=== PATIENT | male | born 1945 | race Caucasian/White ===

== ENCOUNTER 2016-12-03 04:24 | Emergency (ER) | payer MEDICARE, OTHER ==
[~2016-12-03] VITALS: Ht 175.3 cm; Wt 84.2 kg
[~2016-12-03 04:24] MED LIST: ACET-2321 PO; ALPR0.5T78 PO; ASPI-1115 PO; CHOL100047 PO; CITA-51 PO; DOCU-168 PO; FERR325T40 PO; MULT-669 PO; OXYC-544 PO; PANT40TA27 PO; TRAZ-170 PO; VITA400C19 PO
[2016-12-03 04:28] VITALS: TEMP 97.8; Ht 175.3 cm; Wt 84.2 kg
--- OUTSIDE RECORDS SUMMARY | 2016-12-03 04:28 | XMS REPORT | Continuity of Care Document ---
Author Author [facility] LIVE Organization [facility] LIVE Address Unknown Phone Unavailable Support Name Relationship Address Phone REBECCA MARK MD Caregiver [facility] [address] [place] [address] , [address] [place] [address] JEFF AVELAR DO Caregiver [facility] [address] [place] [address] [address] [place] [address] [phone] JOSE NGUYỄN Next Of Kin [address] [place], [place] [id number] C Insurance Providers Payer Name Policy Number Subscriber Name Relationship [facility] [id number] Santosh Nguyễn 18 Self Medicare Part A Only [id number] Santosh Nguyễn 18 Self Advance Directives Directive Response Recorded Date/Time Advanced Directives Type Living Will DPOA for Healthcare 04/12/14 12:07pm Ordered Resuscitation Status Full Code 04/12/14 12:11pm Chief Complaint and Reason for Visit Chief Complaint Cardiac Complaint Reason for Visit Chest discomfort Problems Medical Problems Problem Onset Date Status CAD (coronary artery disease) Unknown Active Acute GI bleeding Unknown Active Anemia due to acute blood loss Unknown Active GI bleed Unknown Active Worsening angina Unknown Active Anemia associated with acute blood loss Unknown Active Chest pain Unknown Active GI bleed Unknown Active Shortness of breath on exertion 04/09/2014 Active Elevated d-dimer 04/09/2014 Active Chest discomfort Unknown Active Chest discomfort Unknown Active Surgical Problems Problem Onset Date Recorded Date/Time Status Status post angioplasty with stent Unknown 04/02/2014 5:07pm Active Medications Medication Dose Route Sig Days/Qty Instructions Order Date Discontinued Date Status Meloxicam 15 Mg PO DAILY 06/07/10 04/05/14 Discontinued Pantoprazole Sodium 40 Mg PO DAILY 06/07/10 04/05/14 Discontinued Alprazolam 0.25 Mg PO BEDTIME 06/07/10 Active Citalopram Hydrobromide 40 Mg PO TWICE A DAY 06/07/10 Active Clopidogrel Bisulfate 75 Mg PO DAILY 06/07/10 04/17/11 Discontinued Aspirin 325 Mg PO DAILY 06/07/10 04/05/14 Discontinued Methylprednisolone 06/07/10 12/06/10 Discontinued Clopidogrel Bisulfate 75 Mg PO DAILY 08/25/13 04/05/14 Discontinued Trazodone HCl BEDTIME 04/02/14 Active Ubidecarenone 1 Tab-Cap DAILY 04/02/14 Active Aspirin 81 Mg PO TWICE A DAY 0 Qty 04/05/14 04/10/14 Discontinued Pantoprazole Sodium 1 Tab PO TWICE A DAY 0 Days 04/05/14 Active Nitroglycerin 0.4 Mg SL For CHEST PAIN 04/09/14 Active [Vitamin D] 04/09/14 Active Aspirin 81 Mg PO DAILY 0 Qty 04/10/14 Active Isosorbide Mononitrate 1 Tab PO DAILY 30 Qty 04/10/14 Active Social History Social History Problem Response Recorded Date/Time Smoking Status Never smoker 04/12/2014 12:12pm Chewing Tobacco Status No 08/25/2013 1:35pm Hx Substance Use No 04/09/2014 10:39pm Hx Alcohol Use Y OCCASIONAL WINE 04/09/2014 10:39pm Has the pt used tobacco in the last 12 months No 04/12/2014 12:12pm Query Response Start Date Stop Date Smoking Status Never smoker Hospital Discharge Instructions Instructions: Care Instructions: Reason for Hospitalization: CHEST DISCOMFORT I was in the hospital because (patient own words): "SHORTNESS OF BREATHE, DIZZY, FAINTY" Patient Instructions: EARLY AND LIGHT BREAKFAST ON SATURDAY (04/12) MORNING NOTHING BY MOUTH AFTER BREAKFAST ON SATURDAY (04/12) MORNING BE AT THE HOSPITAL REGISTRATION AT 1200 ON SATURDAY(04/12) MORNING Condition at time of discharge: Good a follow up appointment. With Prednisone your blood sugar will go up, and you may need to increase your insulin dose. Patient Instructions: Check your blood sugars in the morning, 2 hours after meals, and before bed and report to Dr. Munoz Notify Physician If: You develop chest pain, difficulty breathing, weakness, fever, or any new concerns Condition at time of discharge: Good Good Care Plan Discharge Patient: Goal: Understand discharge plan Maximum functional status Patient Instructions: see patient instructions rate >100, confusion, or persistent nausea/vomitting. 2.Severe pain, swelling, redness, or warmth in either of your legs. 3.During office hours, call [phone] 4. After hours, please call [facility] at [phone], and have the recovery unit operator page your Surgeon IN THE EVENT OF AN EMERGENCY, seek medical care at the nearest Emergency Room Condition at time of discharge: Good Plan of Care Discharge Date 04/10/14 4:12pm Disposition 02 [place] [facility] Condition at Discharge Improved Instructions/Education Provided DI for Chest Pain Prescriptions See Medications Section Referrals JEFF AVELAR DO Functional Status Query Response Date Recorded Physical Hygiene Self April 09, 2014 10:39pm Physical Hygiene Self April 09, 2014 10:39pm Allergies, Adverse Reactions, Alerts Allergen Type Severity Reaction Status Last Updated hydrocodone bit Adverse Reaction Severe SICK TO STOMACH Active 04/09/14 Sulfa (Sulfonamide Antibiotics) Allergy Unknown SOA,CHEST TIGHTNESS Active 04/09/14 Simvastatin Allergy Unknown MYOPATHY/MYALGIA Active 04/09/14 Colesevelam Adverse Reaction Unknown MYOPATHY Active 04/09/14 Immunizations Name Given Type Hx Influenza Vaccination Y fall 2012 Historical Hx Pneumococcal Vaccination Y 03/2014 Historical Hx Tetanus, Diptheria, Pertussis Y 06/03/10 Historical Hx Influenza Vaccination Y fall 2012 Historical Hx Tetanus, Diptheria, Pertussis Y 06/03/10 Historical Vital Signs Acute Vital Signs Vital Response Date/Time Temperature (Fahrenheit) 97.8 deg F (96.8 - 99.1) Temperature (Calculated Celsius) 36.57476 degrees C (36.0 - 37.3) Temperature Source Temporal Pulse Rate (adult) 53 bpm (60 - 100) Respiratory Rate 14 breaths/min (10 - 20) O2 Sat by Pulse Oximetry 98 % (90 - 100) Oxygen Delivery Method Room Air Blood Pressure 150/70 mm Hg Blood Pressure Source Automatic Cuff Height 5 ft 10 in Weight 167 lb Body Mass Index 24.0 kg/m^2 Results Test Source Date Result Interp. Ref. Range Comments Activated Partial Thromboplast Time April 09, 2014 10:55pm 31.5 SEC N 24-36 Ordering r/o VTE Yes Alanine Aminotransferase (ALT/SGPT) April 09, 2014 10:55pm 27 U/L N 21- 72 Albumin April 09, 2014 10:55pm 3.5 G/DL N 3.5-5.0 Albumin/Globulin Ratio April 09, 2014 10:55pm 1.5 RATIO N 1.1-2.2 Alkaline Phosphatase April 09, 2014 10:55pm 65 U/L N 38-126 Amylase Level April 17, 2011 11:20am 81 U/L N 30-110 Anion Gap April 12, 2014 12:25pm 8 MEQ/L N 5-15 Aspartate Amino Transf (AST/SGOT) April 09, 2014 10:55pm 22 U/L N 17- 59 BUN/Creatinine Ratio April 12, 2014 12:25pm 18 RATIO N 6-26 Basophils # (Auto) April 12, 2014 12:25pm 0.1 T/MM3 N 0-0.2 Basophils (%) (Auto) April 12, 2014 12:25pm 1.6 % N 0-2 Blood Urea Nitrogen April 12, 2014 12:25pm 21.0 MG/DL H 9-20 Calcium Level April 12, 2014 12:25pm 9.0 MG/DL N 8.4-10.2 Calculated Osmolality April 12, 2014 12:25pm 273 MOSM/KG N 261-280 Carbon Dioxide Level April 12, 2014 12:25pm 29 MEQ/L N 22-30 Chemistry Specimen Hemolysis April 12, 2014 12:25pm < 15 0-25 0-25: No Hemolysis.26-70: Slight Hemolysis - can falsely elevate K and Urine Protein. 71-285: Moderate Hemolysis - can falsely elevate K, Troponin I, CA 19-9, PTH, CSF GLucose, and Urine Protein, and can falsely decrease Phenytoin. 286-999: Gross Hemolysis - can falsely elevate K, Troponin I, CA 19-9, PTH, CSF Glucose, and Urine Protine, and can falsely decrease Phenytoin. Recommend specimen recollection. Chloride Level April 12, 2014 12:25pm 104 MEQ/L N 98-107 Conjugated Bilirubin January 23, 2010 3:06pm 0.00 MG/DL N 0.00-0.30 Creatinine April 12, 2014 12:25pm 1.2 MG/DL N 0.8-1.5 D-Dimer April 09, 2014 10:55pm 316 NG/ML H 0-224 <224 NG/ML= PRESUMPTIVE NEGATIVE FOR PE OR DVT>224 NG/ML=ADDITIONAL EVALUATION FOR PE OR DVT RECOMMENDED Eosinophils # (Auto) April 12, 2014 12:25pm 0.1 T/MM3 N 0-0.5 Eosinophils (%) (Auto) April 12, 2014 12:25pm 1.2 % N 0-4 Globulin April 09, 2014 10:55pm 2.4 G/DL N 2.4-3.6 Glomerular Filtration Rate Calc April 12, 2014 12:25pm 60 - Glucose Level April 12, 2014 12:25pm 88 MG/DL N 75-110 Helicobacter pylori Antibodies April 04, 2014 5:00am Negative - Hematocrit April 12, 2014 12:25pm 32.4 % L 41-53 Hemoglobin April 12, 2014 12:25pm 10.5 GM/DL L 13.5-17.5 Icterus Index April 12, 2014 12:25pm < 2 0-7 Immature Granulocyte # (Auto) April 12, 2014 12:25pm 0.00 T/MM3 N 0.00- 0.03 Immature Granulocyte % (Auto) April 12, 2014 12:25pm 0.0 % N 0.0-0.5 Lab Scanned Report November 10, 2010 12:35pm LAB TEST FORM REQUEST [id number] - Lipase April 17, 2011 11:20am 123 U/L N 23-300 Lymphocytes # (Auto) April 12, 2014 12:25pm 1.2 T/MM3 N 1-4.8 Lymphocytes (%) (Auto) April 12, 2014 12:25pm 25.2 % N 23-45 Magnesium Level April 09, 2014 10:55pm 1.9 MG/DL N 1.6-2.3 Mean Corpuscular Hemoglobin April 12, 2014 12:25pm 26.8 UUG N 26-34 Mean Corpuscular Hemoglobin Concent April 12, 2014 12:25pm 32.4 GM/DL N 31-37 Mean Corpuscular Volume April 12, 2014 12:25pm 82.7 UM3 N 80-100 Mean Platelet Volume April 12, 2014 12:25pm 10.1 UM3 N 9.4-12.4 Monocytes # (Auto) April 12, 2014 12:25pm 0.4 T/MM3 N 0-0.8 Monocytes (%) (Auto) April 12, 2014 12:25pm 8.4 % N 0-9.0 VT-Wfj-N-Type Natriuretic Peptide April 09, 2014 10:55pm 66 PG/ML N 0- 175 Rule in cut points: <50 years old=450; 50-75 years old=900; >75 years old=1800; When utilizing ProBNP rule-in cut points, adjustment for impaired renal function is typically not required. Neutrophils # (Auto) April 12, 2014 12:25pm 3.1 T/MM3 N 1.8-7.7 Neutrophils (%) (Auto) April 12, 2014 12:25pm 63.6 % N 33-66 Platelet Count April 12, 2014 12:25pm 234 T/MM3 N 130-400 Platelet Function Assay December 07, 2010 11:17am 16 % - <20% inhibition : recommended pre-surgical level.>20% inhibition: indicates anti-platelet effect. NOTE: Test not reliable with NSAID use or low platelet counts. Not for use with inherited platelet disorders. Potassium Level April 12, 2014 12:25pm 4.2 MEQ/L N 3.6-5 Prothromb Time International Ratio April 09, 2014 10:55pm 0.95 N 0.81- 1.09 THERAPUTIC RANGE=2.00-3.00 FOR ANTI-THROMBOSIS THERAPUTIC RANGE=2.50- 3.50 FOR IMPLANTED VALVE RDW Standard Deviation April 12, 2014 12:25pm 39.8 FL N 36.9-50.2 Red Blood Count April 12, 2014 12:25pm 3.92 M/MM3 L 4.50-5.90 Sodium Level April 12, 2014 12:25pm 141 MEQ/L N 134-144 Thyroid Stimulating Hormone (TSH) April 09, 2014 10:55pm 3.20 MIU/L N 0.47-4.68 Total Bilirubin April 09, 2014 10:55pm 0.30 MG/DL N 0.20-1.30 Total Protein April 09, 2014 10:55pm 5.9 G/DL L 6.3-8.2 Troponin I April 10, 2014 11:14am < 0.012 ng/ml 0-0.12 Turbidity April 12, 2014 12:25pm < 20 0-20 Unconjugated Bilirubin January 23, 2010 3:06pm 0.51 MG/DL N 0.00-1.10 Urine Bilirubin June 07, 2010 6:30pm Negative - Has specimen been collected/obtained? Y Urine Blood June 07, 2010 6:30pm Trace H - Has specimen been collected/obtained? Y Urine Collection Type June 07, 2010 6:30pm Voided - Has specimen been collected/obtained? Y Urine Color June 07, 2010 6:30pm Yellow - Has specimen been collected/obtained? Y Urine Culture Indicated June 07, 2010 6:30pm Cult not set up - Has specimen been collected/obtained? Y Urine Glucose (UA) June 07, 2010 6:30pm Negative - Has specimen been collected/obtained? Y Urine Ketones June 07, 2010 6:30pm Negative - Has specimen been collected/obtained? Y Urine Leukocyte Esterase June 07, 2010 6:30pm Negative - Has specimen been collected/obtained? Y Urine Nitrite June 07, 2010 6:30pm Negative - Has specimen been collected/obtained? Y Urine Protein June 07, 2010 6:30pm Negative - Has specimen been collected/obtained? Y Urine RBC June 07, 2010 6:30pm 3-5 /HPF H - Has specimen been collected/obtained? Y Urine Specific [place] June 07, 2010 6:30pm 1.010 L - Has specimen been collected/obtained? Y Urine Squamous Epithelial Cells December 09, 2008 12:00am Few - [employer] ANALYST Urine Turbidity June 07, 2010 6:30pm Clear - Has specimen been collected/obtained? Y Urine Urobilinogen June 07, 2010 6:30pm Normal EU/DL - Has specimen been collected/obtained? Y Urine WBC June 07, 2010 6:30pm None seen /HPF - Has specimen been collected/obtained? Y Urine Yeast June 07, 2010 6:30pm 1+ H - Has specimen been collected/ obtained? Y Urine pH June 07, 2010 6:30pm 7.0 - Has specimen been collected/ obtained? Y White Blood Count April 12, 2014 12:25pm 4.9 T/MM3 N 4.5-11.0 Name: SANTOSH NGUYỄN Unit #: [id number] : 1945 Sex: M Loc / [facility] [place]: SRG DOS: 04/09/14 Signed Report #: [id number] DIAGNOSTIC IMAGING REPORT TYPE OF EXAM: CTA PULMONARY EMBOLI Dictated By: BONNIE UGARTE MD INDICATION: ITS.REASON: CHEST DISCOMFORT, SHORTNESS OF BREATH, ELEVATED D-DIMER CTA PULMONARY EMBOLI: The lungs are clear. No nodule or mass. No atelectasis , consolidative infiltrate, or effusion. The pulmonary arteries are widely patent and clear. No evidence for pulmonary embolus or thrombus. Normal appearance of the mediastinum and megan. The upper abdomen is normal in appearance. IMPRESSION: Normal CTA of the chest. No evidence for pulmonary embolism or thrombus or any other abnormality. . Procedures Procedure Status Date Provider(s) EGD (esophagogastroduodenoscopy) completed 04/03/14 JEFF AVELAR DO Encounters Encounter Location Date/Time Departed Clinic [facility] 04/12/14 11:54am Discharged Inpatient [facility] 04/10/14 1:37am Discharged Inpatient [facility] 04/02/14 5:09pm
--- OUTSIDE RECORDS SUMMARY | 2016-12-03 04:28 | XMS REPORT | Continuity of Care Document ---
Author Author [facility] LIVE Organization [facility] LIVE Address Unknown Phone Unavailable Support Name Relationship Address Phone REBECCA MARK MD Caregiver [facility] [address] [facility] [address] [place] [address] ZAHIDA MCKINLEY MD Caregiver [address] [place] [address] [place] [phone] JEFF AVELAR DO Caregiver [facility] [address] [facility] [address] [place], [place] [phone] JOSE NGUYỄN Next Of Kin [address] [place] [address] C Insurance Providers Payer Name Policy Number Subscriber Name Relationship [facility] [id number] Santosh Nguyễn Self Medicare Part A Only [id number] Santosh Nguyễn 18 Self Advance Directives Directive Response Recorded Date/Time Advanced Directives Type Living Will DPOA for Healthcare 04/02/14 5:45pm Ordered Resuscitation Status Full Code 04/02/14 5:09pm Resuscitation Documents on File No 04/02/14 5:45pm Chief Complaint and Reason for Visit Chief Complaint GI BLEED W/PROFOUND ANEMIA,ANGINA Reason for Visit CAD (coronary artery disease) Acute GI bleeding Anemia due to acute blood loss GI bleed Worsening angina Anemia associated with acute blood loss Chest pain Status post angioplasty with stent GI bleed Problems Medical Problems Problem Onset Date Status CAD (coronary artery disease) Unknown Active Acute GI bleeding Unknown Active Anemia due to acute blood loss Unknown Active GI bleed Unknown Active Worsening angina Unknown Active Anemia associated with acute blood loss Unknown Active Chest pain Unknown Active GI bleed Unknown Active Surgical Problems Problem Onset Date [...] PO TWICE A DAY 0 Qty 04/05/14 Active Pantoprazole Sodium 1 Tab PO TWICE A DAY 0 Days 04/05/14 Active Social History Social History Problem Response Recorded Date/Time Smoking Status Never smoker 04/02/2014 5:33pm Chewing Tobacco Status No 08/25/2013 1:35pm Hx Substance Use No 04/02/2014 3:28pm Hx Alcohol Use Y OCCASIONAL WINE 04/02/2014 3:28pm Has the pt used tobacco in the last 12 months No 04/02/2014 5:33pm Query Response Start Date Stop Date Smoking Status Never smoker Hospital Discharge Instructions Instructions: Care Instructions: Nutrition: Breastfeed ad getachew, Supplement after nursing Discharge Activity: see instructions Follow Up Appointments: Call for an appointment with Dr. Florentino in 2 weeks at [phone] Patient Instructions: see instructions Notify Physician If: see instructions General Information: ngmzyo=5750 g, 8 lbs. 12 oz. Dismissal iivonr=8444 g, 8 lbs. 11.5 oz. Plan of Care Discharge Date 04/05/14 12:18pm Disposition 01 DISCHARGED HOME, SELF-CARE Instructions/Education Provided Blood Transfusion DI for Gastrointestinal Bleeding Prescriptions See Medications Section Functional Status Query Response Date Recorded Physical Hygiene Self April 05, 2014 9:46am Disabilities Hearing Visual April 05, 2014 9:46am Devices Used Glasses April 05, 2014 9:46am Dressing Self April 05, 2014 9:46am Ambulation Self April 05, 2014 9:46am Diet Self April 05, 2014 9:46am Mental Status Alert Oriented April 05, 2014 9:46am Disabilities Hearing Visual April 05, 2014 9:46am Devices Used Glasses April 05, 2014 9:46am Physical Hygiene Self April 05, 2014 9:46am Dressing Self April 05, 2014 9:46am Ambulation Self April 05, 2014 9:46am Diet Self April 05, 2014 9:46am Allergies, Adverse Reactions, Alerts Allergen Type Severity Reaction Status Last Updated hydrocodone bit Adverse Reaction Severe SICK TO STOMACH Active 04/02/14 Sulfa (Sulfonamide Antibiotics) Allergy Unknown SOA,CHEST TIGHTNESS Active 04/02/14 Simvastatin Allergy Unknown MYOPATHY/MYALGIA Active 04/02/14 Colesevelam Adverse Reaction Unknown MYOPATHY Active 04/02/14 Immunizations Name Given Type Hx Influenza Vaccination Y fall 2012 Historical Hx Pneumococcal Vaccination Y 2007 Historical Hx Tetanus, Diptheria, Pertussis Y 06/03/10 Historical Hx Influenza Vaccination Y fall 2012 Historical Hx Tetanus, Diptheria, Pertussis Y 06/03/10 Historical Vital Signs Acute Vital Signs Vital Response Date/Time Temperature (Fahrenheit) 96.7 deg F (96.8 - 99.1) Temperature (Calculated Celsius) 35.51552 degrees C (36.0 - 37.3) Temperature Source Oral Pulse Rate (adult) 65 bpm (60 - 100) Respiratory Rate 12 breaths/min (10 - 20) O2 Sat by Pulse Oximetry 99 % (90 - 100) Oxygen Delivery Method Room Air Blood Pressure 136/73 mm Hg Blood Pressure Source Automatic Cuff Height (Feet) 5 feet Height (Inches) 9.00 inches Height 5 ft 9 in Weight 159 lb Body Mass Index 23.0 kg/m^2 Results Test Source Date Result Interp. Ref. Range Comments Activated Partial Thromboplast Time April 02, 2014 3:45pm 27.6 SEC N 24 -36 Alanine Aminotransferase (ALT/SGPT) April 05, 2014 4:35am 32 U/L N 21- 72 Albumin April 05, 2014 4:35am 3.0 G/DL L 3.5-5.0 Albumin/Globulin Ratio April 05, 2014 4:35am 1.3 RATIO N 1.1-2.2 Alkaline Phosphatase April 05, 2014 4:35am 63 U/L N 38-126 Amylase Level April 17, 2011 11:20am 81 U/L N 30-110 Anion Gap April 05, 2014 4:35am 7 MEQ/L N 5-15 Aspartate Amino Transf (AST/SGOT) April 05, 2014 4:35am 17 U/L N 17-59 BUN/Creatinine Ratio April 05, 2014 4:35am 12 RATIO N 6-26 Basophils # (Auto) April 05, 2014 4:35am 0.1 T/MM3 N 0-0.2 Basophils (%) (Auto) April 05, 2014 4:35am 1.1 % N 0-2 Blood Urea Nitrogen April 05, 2014 4:35am 14.0 MG/DL DN 9-20 Calcium Level April 05, 2014 4:35am 8.5 MG/DL N 8.4-10.2 Calculated Osmolality April 05, 2014 4:35am 271 MOSM/KG N 261-280 Carbon Dioxide Level April 05, 2014 4:35am 27 MEQ/L N 22-30 Chemistry Specimen Hemolysis April 05, 2014 4:35am < 15 0-25 0-25: No Hemolysis.26-70: Slight [...] Phenytoin. Recommend specimen recollection. Chloride Level April 05, 2014 4:35am 107 MEQ/L N 98-107 Conjugated Bilirubin January 23, 2010 3:06pm 0.00 MG/DL N 0.00-0.30 Creatinine April 05, 2014 4:35am 1.2 MG/DL N 0.8-1.5 Eosinophils # (Auto) April 05, 2014 4:35am 0.1 T/MM3 N 0-0.5 Eosinophils (%) (Auto) April 05, 2014 4:35am 2.3 % N 0-4 Globulin April 05, 2014 4:35am 2.3 G/DL L 2.4-3.6 Glomerular Filtration Rate Calc April 05, 2014 4:35am 60 - Glucose Level April 05, 2014 4:35am 86 MG/DL N 75-110 Helicobacter pylori Antibodies April 04, 2014 5:00am Negative - Hematocrit April 05, 2014 4:35am 31.3 % L 41-53 Hemoglobin April 05, 2014 4:35am 10.2 GM/DL L 13.5-17.5 Icterus Index April 05, 2014 4:35am < 2 0-7 Immature Granulocyte # (Auto) April 05, 2014 4:35am 0.00 T/MM3 N 0.00- 0.03 Immature Granulocyte % (Auto) April 05, 2014 4:35am 0.0 % N 0.0-0.5 Lab Scanned Report November 10, 2010 12:35pm LAB TEST FORM REQUEST [id number] - Lipase April 17, 2011 11:20am 123 U/L N 23-300 Lymphocytes # (Auto) April 05, 2014 4:35am 1.7 T/MM3 N 1-4.8 Lymphocytes (%) (Auto) April 05, 2014 4:35am 30.4 % N 23-45 Magnesium Level April 05, 2014 4:35am 2.0 MG/DL N 1.6-2.3 Mean Corpuscular Hemoglobin April 05, 2014 4:35am 26.9 UUG N 26-34 Mean Corpuscular Hemoglobin Concent April 05, 2014 4:35am 32.6 GM/DL N 31-37 Mean Corpuscular Volume April 05, 2014 4:35am 82.6 UM3 N 80-100 Mean Platelet Volume April 05, 2014 4:35am 11.0 UM3 N 9.4-12.4 Monocytes # (Auto) April 05, 2014 4:35am 0.6 T/MM3 N 0-0.8 Monocytes (%) (Auto) April 05, 2014 4:35am 10.9 % H 0-9.0 FU-Xlb-I-Type Natriuretic Peptide April 02, 2014 3:45pm 267 PG/ML H 0- 175 Rule in cut points: <50 years old=450; 50-75 years old=900; >75 years old=1800; When utilizing ProBNP rule-in cut points, adjustment for impaired renal function is typically not required. Neutrophils # (Auto) April 05, 2014 4:35am 3.1 T/MM3 N 1.8-7.7 Neutrophils (%) (Auto) April 05, 2014 4:35am 55.3 % N 33-66 Platelet Count April 05, 2014 4:35am 202 T/MM3 N 130-400 Platelet Function Assay December 07, 2010 11:17am 16 % - <20% inhibition : recommended pre-surgical level.>20% inhibition: indicates anti-platelet effect. NOTE: Test not reliable with NSAID use or low platelet counts. Not for use with inherited platelet disorders. Potassium Level April 05, 2014 4:35am 3.8 MEQ/L N 3.6-5 Prothromb Time International Ratio April 02, 2014 3:45pm 0.98 N 0.81- 1.09 THERAPUTIC RANGE=2.00-3.00 FOR ANTI-THROMBOSIS THERAPUTIC RANGE=2.50- 3.50 FOR IMPLANTED VALVE RDW Standard Deviation April 05, 2014 4:35am 41.5 FL N 36.9-50.2 Red Blood Count April 05, 2014 4:35am 3.79 M/MM3 L 4.50-5.90 Sodium Level April 05, 2014 4:35am 141 MEQ/L N 134-144 Total Bilirubin April 05, 2014 4:35am 0.70 MG/DL N 0.20-1.30 Total Protein April 05, 2014 4:35am 5.3 G/DL L 6.3-8.2 Troponin I April 02, 2014 3:45pm < 0.012 ng/ml 0-0.12 Turbidity April 05, 2014 4:35am < 20 0-20 Unconjugated Bilirubin January 23, [...] Has specimen been collected/obtained? Y Urine Specific [place] June 07, 2010 6:30pm 1.010 L - Has specimen been collected/obtained? 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 Y White Blood Count April 05, 2014 4:35am 5.6 T/MM3 N 4.5-11.0 Name: SANTOSH NGUYỄN Unit #: [id number] : 1945 Sex: M Loc / Svc: ED DOS: Signed Report #: [id number] DIAGNOSTIC IMAGING REPORT TYPE OF EXAM: CHEST 1 VIEW Dictated By: VINNIE DURON MD INDICATION: ITS.REASON: chest pain CHEST 1 VIEW: Comparison: July 09, 2012 FINDINGS: The lungs are clear. There is no abnormal airspace opacity, pleural effusion or pneumothorax identified. The heart size, pulmonary vasculature and mediastinum are within normal limits. No significant skeletal abnormality is seen. IMPRESSION: No acute cardiopulmonary abnormality. Stable appearance of the chest. . Procedures Procedure Status Date Provider(s) EGD (esophagogastroduodenoscopy) completed 04/03/14 JEFF AVELAR DO Encounters Encounter Location Date/Time Discharged Inpatient [facility] 04/02/14 5:09pm Recent Diagnosis CAD (coronary artery disease) Acute GI bleeding Anemia due to acute blood loss GI bleed Worsening angina Anemia associated with acute blood loss Chest pain GI bleed
--- OUTSIDE RECORDS SUMMARY | 2016-12-03 04:28 | XMS REPORT | Continuity of Care Document ---
Author Author [facility] LIVE Organization [facility] LIVE Address Unknown Phone Unavailable Support Name Relationship Address Phone REBECCA MARK MD Caregiver CARDIOVASCULAR CARE [address] [facility] [address] [place] [address] JEFF AVELAR DO Caregiver [facility] [address] [place] [phone] JIMENEZ BAILEY MD Caregiver [address] [place] [address] [place] [phone] JOSE NGUYỄN Next Of Kin [address] [place], [place] [id number] C Insurance Providers Payer Name Policy Number Subscriber Name Relationship [facility] [id number] Santosh Nguyễn Self Medicare Part A Only [id number] Santosh Nguyễn 18 Self Advance Directives Directive Response Recorded Date/Time Advanced Directives Type None 04/10/14 2:37am Ordered Resuscitation Status Full Code, unverified 04/10/14 1:37am Chief Complaint and Reason for Visit Chief Complaint CHEST DISCOMFORT,DYSPNEA Reason for Visit Shortness of breath on exertion Elevated d-dimer Chest discomfort Chest discomfort Problems Medical Problems Problem Onset [...] History Problem Response Recorded Date/Time Smoking Status Former smoker 04/09/2014 10:39pm Chewing Tobacco Status No 08/25/2013 1:35pm Hx Substance Use No 04/09/2014 10:39pm Hx Alcohol Use Y OCCASIONAL WINE 04/09/2014 10:39pm Has the pt used tobacco in the last 12 months No 04/10/2014 2:38am Query Response Start Date Stop Date Smoking [...] MORNING Condition at time of discharge: Good Patient Instructions: Drink adequate water to maintain good hydration. Get adequate rest at least 7-8 hrs of sleep at night. Limit intake of mild since it causes a rise in your blood sugar. Notify Physician If: Fever over 103 F not responding to treatment with Tylenol or ibuprofen Condition at time of discharge: Good Condition at time of discharge: Good Driving 1.May drive in 4 weeks if you had your LEFT extremity operated on. 2.May drive in 6 weeks if you had your RIGHT extremity operated on. Wound/Incision Care: Tegaderm 1.Clear dressing is to remain in place for 2 weeks. 2.Do not pick at it or scrub it while showering. 3.If the dressing begins to pull up, secure it with 4x4 gauze pad and tape. 4.You may shower; however, do not submerge yourself in water until the incision is completely healed. Mepilex 1.Dressing to remain in place until your follow up appointment. 2.If this dressing starts peeling up slightly, it may be reinforced, if it peels excessively, notify your surgeon's office. 3.You may shower with the dressing in place, but do not submerge in water 4.Do not allow water to seep under the dressing, if it should seep under, remove the dressing and notify your surgeon. Notify Physician If: Call your Surgeon if you have: 1.Chest pain, difficulty breathing, fever>100.5 degrees, chills, heart rate >100, confusion, or persistent nausea/vomitting. 2.Severe pain, swelling, redness, or warmth in either of your legs. 3.During office hours, call [phone] 4. After hours, please call [facility] at [phone], and have the stemming machine operator page your Surgeon IN THE EVENT OF AN EMERGENCY, seek medical care at the nearest Emergency Room Condition at time of discharge: Good Care Plan Discharge Patient: Goal: Understand discharge plan Patient Instructions: see patient instructions see patient instructions Plan of Care Discharge Date 04/10/14 4:12pm Disposition 01 DISCHARGED HOME, SELF-CARE Instructions/Education Provided DI for Chest Pain Prescriptions See Medications Section Functional Status Query Response Date Recorded Physical Hygiene Self April 09, 2014 10:39pm Disabilities None April 10, 2014 1:44am Devices Used Glasses April 10, 2014 1:44am Dressing Self April 09, 2014 10:39pm Ambulation Self April 09, 2014 10:39pm Diet Self April 09, 2014 10:39pm Mental Status Alert Oriented April 10, 2014 1:44am Disabilities None April 10, 2014 1:44am Devices Used Glasses April 10, 2014 1:44am Physical Hygiene Self April 09, 2014 10:39pm Dressing Self April 09, 2014 10:39pm Ambulation Self April 09, 2014 10:39pm Diet Self April 09, 2014 10:39pm Allergies, Adverse [...] Hx Tetanus, Diptheria, Pertussis Y 06/03/10 Historical pneumococcal polysaccharide PPV23 04/05/14 Administered pneumococcal polysaccharide PPV23 04/05/14 Administered Vital Signs Acute Vital Signs Vital Response Date/Time Temperature (Fahrenheit) 97.7 deg F (96.8 - 99.1) Temperature (Calculated Celsius) 36.05459 degrees C (36.0 - 37.3) Pulse Rate (adult) 52 bpm (60 - 100) Respiratory Rate 14 breaths/min (10 - 20) O2 Sat by Pulse Oximetry 99 % (90 - 100) Oxygen Flow Rate 1.00 L/min Blood Pressure 117/58 mm Hg Height 5 ft 10 in Weight 173 lb Body Mass Index 24.0 kg/m^2 Results [...] 81 U/L N 30-110 Anion Gap April 09, 2014 10:55pm 8 MEQ/L N 5-15 Aspartate Amino Transf (AST/SGOT) April 09, 2014 10:55pm 22 U/L N 17- 59 BUN/Creatinine Ratio April 09, 2014 10:55pm 25 RATIO N 6-26 Basophils # (Auto) April 10, 2014 1:15am 0.1 T/MM3 N 0-0.2 COMMENT MAY USE BLOOD IN LAB Basophils (%) (Auto) April 10, 2014 1:15am 1.8 % N 0-2 COMMENT MAY USE BLOOD IN LAB Blood Urea Nitrogen April 09, 2014 10:55pm 27.0 MG/DL H 9-20 Calcium Level April 09, 2014 10:55pm 8.7 MG/DL N 8.4-10.2 Calculated Osmolality April 09, 2014 10:55pm 270 MOSM/KG N 261-280 Carbon Dioxide Level April 09, 2014 10:55pm 27 MEQ/L N 22-30 Chemistry Specimen Hemolysis April 10, 2014 11:14am < 15 0-25 0-25: No Hemolysis.26-70: Slight [...] Phenytoin. Recommend specimen recollection. Chloride Level April 09, 2014 10:55pm 103 MEQ/L N 98-107 Conjugated Bilirubin January 23, 2010 3:06pm 0.00 MG/DL N 0.00-0.30 Creatinine April 09, 2014 10:55pm 1.1 MG/DL N 0.8-1.5 D-Dimer April 09, 2014 10:55pm 316 NG/ML H 0-224 <224 NG/ML= PRESUMPTIVE NEGATIVE FOR PE OR DVT>224 NG/ML=ADDITIONAL EVALUATION FOR PE OR DVT RECOMMENDED Eosinophils # (Auto) April 10, 2014 1:15am 0.2 T/MM3 N 0-0.5 COMMENT MAY USE BLOOD IN LAB Eosinophils (%) (Auto) April 10, 2014 1:15am 3.9 % N 0-4 COMMENT MAY USE BLOOD IN LAB Globulin April 09, 2014 10:55pm 2.4 G/DL N 2.4-3.6 Glomerular Filtration Rate Calc April 09, 2014 10:55pm 67 - Glucose Level April 09, 2014 10:55pm 88 MG/DL N 75-110 Helicobacter pylori Antibodies April 04, 2014 5:00am Negative - Hematocrit April 10, 2014 1:15am 31.6 % L 41-53 COMMENT MAY USE BLOOD IN LAB Hemoglobin April 10, 2014 1:15am 10.1 GM/DL L 13.5-17.5 COMMENT MAY USE BLOOD IN LAB Icterus Index April 09, 2014 10:55pm < 2 0-7 Immature Granulocyte # (Auto) April 10, 2014 1:15am 0.01 T/MM3 N 0.00- 0.03 COMMENT MAY USE BLOOD IN LAB Immature Granulocyte % (Auto) April 10, 2014 1:15am 0.2 % N 0.0-0.5 COMMENT MAY USE BLOOD IN LAB Lab Scanned Report November 10, 2010 12:35pm LAB TEST FORM REQUEST [id number] - Lipase April 17, 2011 11:20am 123 U/L N 23-300 Lymphocytes # (Auto) April 10, 2014 1:15am 1.6 T/MM3 N 1-4.8 COMMENT MAY USE BLOOD IN LAB Lymphocytes (%) (Auto) April 10, 2014 1:15am 34.1 % N 23-45 COMMENT MAY USE BLOOD IN LAB Magnesium Level April 09, 2014 10:55pm 1.9 MG/DL N 1.6-2.3 Mean Corpuscular Hemoglobin April 10, 2014 1:15am 27.0 UUG N 26-34 COMMENT MAY USE BLOOD IN LAB Mean Corpuscular Hemoglobin Concent April 10, 2014 1:15am 32.0 GM/DL N 31-37 COMMENT MAY USE BLOOD IN LAB Mean Corpuscular Volume April 10, 2014 1:15am 84.5 UM3 N 80-100 COMMENT MAY USE BLOOD IN LAB Mean Platelet Volume April 10, 2014 1:15am 11.1 UM3 N 9.4-12.4 COMMENT MAY USE BLOOD IN LAB Monocytes # (Auto) April 10, 2014 1:15am 0.6 T/MM3 N 0-0.8 COMMENT MAY USE BLOOD IN LAB Monocytes (%) (Auto) April 10, 2014 1:15am 12.7 % H 0-9.0 COMMENT MAY USE BLOOD IN LAB CP-Jay-W-Type Natriuretic Peptide April 09, 2014 10:55pm 66 PG/ML N 0- 175 Rule in cut points: <50 years old=450; 50-75 years old=900; >75 years old=1800; When utilizing ProBNP rule-in cut points, adjustment for impaired renal function is typically not required. Neutrophils # (Auto) April 10, 2014 1:15am 2.2 T/MM3 N 1.8-7.7 COMMENT MAY USE BLOOD IN LAB Neutrophils (%) (Auto) April 10, 2014 1:15am 47.3 % N 33-66 COMMENT MAY USE BLOOD IN LAB Platelet Count April 10, 2014 1:15am 212 T/MM3 N 130-400 COMMENT MAY USE BLOOD IN LAB Platelet Function Assay December 07, 2010 11:17am 16 % - <20% inhibition : recommended pre-surgical level.>20% inhibition: indicates anti-platelet effect. NOTE: Test not reliable with NSAID use or low platelet counts. Not for use with inherited platelet disorders. Potassium Level April 09, 2014 10:55pm 3.9 MEQ/L N 3.6-5 Prothromb Time International Ratio April 09, 2014 10:55pm 0.95 N 0.81- 1.09 THERAPUTIC RANGE=2.00-3.00 FOR ANTI-THROMBOSIS THERAPUTIC RANGE=2.50- 3.50 FOR IMPLANTED VALVE RDW Standard Deviation April 10, 2014 1:15am 41.9 FL N 36.9-50.2 COMMENT MAY USE BLOOD IN LAB Red Blood Count April 10, 2014 1:15am 3.74 M/MM3 L 4.50-5.90 COMMENT MAY USE BLOOD IN LAB Sodium Level April 09, 2014 10:55pm 138 MEQ/L N 134-144 Thyroid Stimulating Hormone (TSH) April 09, 2014 10:55pm 3.20 MIU/L N 0.47-4.68 Total Bilirubin April 09, 2014 10:55pm 0.30 MG/DL N 0.20-1.30 Total Protein April 09, 2014 10:55pm 5.9 G/DL L 6.3-8.2 Troponin I April 10, 2014 11:14am < 0.012 ng/ml 0-0.12 Turbidity April 09, 2014 10:55pm < 20 0-20 Unconjugated Bilirubin January 23, [...] Has specimen been collected/obtained? Y Urine Specific [place] June 07, 2010 6:30pm 1.010 L - Has specimen been collected/obtained? 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 Y White Blood Count April 10, 2014 1:15am 4.6 T/MM3 N 4.5-11.0 COMMENT MAY USE BLOOD IN LAB Name: SANTOSH NGUYỄN Unit #: [id number] : 1945 Sex: M Loc / Svc: SRG DOS: 04/09/14 Signed Report #: [id number] DIAGNOSTIC IMAGING REPORT TYPE OF EXAM: CTA [...] DO Encounters Encounter Location Date/Time Discharged Inpatient [facility] 04/10/14 1:37am Discharged Inpatient [facility] 04/02/14 5:09pm Recent Diagnosis Shortness of breath on exertion Elevated d-dimer Chest discomfort Chest discomfort
[2016-12-03] MEDS ORDERED: ASPI81TA2 PO (04:45)
[2016-12-03] MEDS ORDERED: SERT50TA PO (04:45)
--- NOTE | 2016-12-03 04:45 | NUR ---
PROVIDER AT BEDSIDE
--- NOTE | 2016-12-03 05:02 | ERPDOC ---
Departure Disposition Decision Date: Dec 03, 2016 Disposition Decision Time: 06:33 Disposition: 01 DISCHARGED HOME, SELF-CARE Impression Impression Impression: Primary Impression: Bradycardia Additional Impressions: Dyspnea Dyspnea type: dyspnea on exertion Qualified Codes: R06.09 - Other forms of dyspnea Fatigue Fatigue type: unspecified Qualified Codes: R53.83 - Other fatigue Severity: Moderate Condition: Stable Seen By: Physician only Referrals: JEFF AVELAR DO (Family) 1 Week REBECCA MARK MD 1 Day Patient Instructions: Dyspnea (ED) Problems/Meds/Labs Reviewed?: Yes Medications reviewed and manag: Yes Additional Instructions: We did not find a cause of your shortness of breath today, but it may be related to your slow heart rate. Follow up with Dr. Mark tomorrow for further testing and treatment. Follow up care ordered?: Yes Mental Status: Alert, Oriented HPI - Dyspnea General Chief Complaint: Dyspnea/Respdistress Stated Complaint: SHORTNESS OF BREATH Time Seen by Provider: 04:43 Source: patient, family Exam Limitations: no limitations HPI - Dyspnea Initial Comments 71yo man presents to the ER this AM for dyspnea on exertion. Pt has had similar sx for several weeks, but the dyspnea has gotten precipitously worse overnight. When pt walked his dogs at 0400 this AM, he could hardly handle the walk. He has a cardiac hx, including 4 stents placed over 3 catheterizations. No h/o CHF or VA. Occurred At: home Onset/Timing: Gradual, Getting worse Duration: other Severity: moderate Prior Episodes/Possible Cause: occasional episodes Modifying Factors: IMPROVES WITH: oxygen, rest, WORSE WITH: activity Associated Symptoms: shortness of breath, DENIES: chest pain, cough, diaphoresis, fever/chills, headaches, loss of appetite, malaise, nausea/vomiting , rash, seizure, syncope, weakness Aspirin Treatment Today: 81 mg x 1, provided at home Hx of Similar Symptoms: Yes Allergies: Coded Allergies: Sulfa (Sulfonamide Antibiotics) (Verified Allergy, Unknown, SOA,CHEST TIGHTNESS, 12/03/16) simvastatin (Verified Allergy, Unknown, MYOPATHY/MYALGIA, 12/03/16) hydrocodone bit (Verified Adverse Reaction, Severe, SICK TO STOMACH, ) colesevelam (Verified Adverse Reaction, Unknown, MYOPATHY, 12/03/16) Past History Past Medical History Cardiac: CAD GI: GERD, constipation, ulcers Musculoskeletal: osteoarthritis Psychological: anxiety, depression Surgical History General: back, hernia, tonsils Cardiac: cardiac stent Joint: foot, knee, shoulder Family History Family PMH: FOUND: diabetes, hypertension Vaccines Hx Influenza Vaccination: Yes (fall 2012) Hx Pneumococcal Vaccination: Yes (03/2014) Hx Tetanus, Diptheria, Pertuss: Yes (06/03/10) Social History Sexuality: female partner Review of Systems Constitutional Constitutional: fatigue, weakness Cardiovascular Cardiac: dyspnea on exertion Pulmonary Respiratory: dyspnea All other Systems All Other Systems: Reviewed and Negative Physical Exam General General Nourishment: well nourished, well developed, appears stated age, no acute distress, adult, thin General Body Habitus: well groomed Vitals and Pain First Documented Vital Signs Date Time Temp Pulse Resp B/P Pulse Ox O2 Delivery O2 Flow Rate FiO2 12/03/16 04:28 97.8 48 20 147/79 97 Room Air Weight: Kilograms: 84.200 Height (feet): 5 Height (inches): 9.00 Triage Pain Scale: RN VS reviewed by Provider: Yes Eyes (brief) Eyes Brief: found: EOMI, PERRL, not found: scleral icterus ENMT (brief) ENMT Brief: FOUND: TM clear, TM good light reflex, ear canals clear, mucosa moist, normal tonsils Neck (brief) Neck: FOUND: trachea midline, NOT FOUND: JVD, adenopathy, thyromegaly Respiratory (brief) Respiratory: FOUND: clear all dale, equal bilaterally, symmetrical, NOT FOUND : rales, wheezes Cardiovascular (brief) Cardiac: FOUND: regular rhythm, NOT FOUND: click, gallop, murmur, pedal edema, peripheral edema, regular rate (Bradycardia), rub Capillary Refill: <2 sec Pulses: all distal extremities, equal, strong Abdomen (brief) Abdominal Brief: FOUND: bowel normo active x4, soft, NOT FOUND: distended, hepatosplenomegaly, pulsatile mass, tender Lymphatic (brief) Lymphatic Brief: NOT FOUND: adenopathy, lymphedema Musculoskeletal (brief) Musculoskeletal Brief: NOT FOUND: deformity, loss of motion, spasm, tenderness Integumentary (brief) Integumentary Brief: FOUND: pink, warm Neurologic (brief) Neurological Brief: FOUND: CN w/o gross def to obs, DTR 2/4 all extremities, gait w/o gross def to obs, motor-no gross deficits, sensory-no gross deficits, NOT FOUND: Babinski Psychiatric (brief) Psychiatric Brief: FOUND: alert, normal affect, oriented Differential Diagnoses Considering: Acute Bronchitis, Acute VA, Acute Respiratory Failure, CHF, Pneumonia, Pneumothorax, Pulmonary Edema, Pulmonary Embolus, RSV, Viral Syndrome Progress Results/Orders Orders Procedure Category Date Status Time Cmp - Comprehensive LAB 12/03/16 Complete Metabolic 04:53 Probnp LAB 12/03/16 Complete 04:53 Cbc W/Auto LAB 12/03/16 Complete Diff-Reflex Manual 04:53 D-Dimer LAB 12/03/16 Complete 04:53 Troponin I W LAB 12/03/16 Complete Hemolysis Index 04:53 EKG EKG 12/03/16 Taken 04:53 Chest, Pa & Lateral RAD 12/03/16 Resulted 04:53 Iv Lock (Ed Only) EDM 12/03/16 Transmitted 04:53 Oxygen Administration EDM 12/03/16 Transmitted 04:53 Magnesium LAB 12/03/16 Complete 04:53 Ua, Dip Wreflex LAB 12/03/16 Complete Microsc & Integration Director 04:53 Tsh - Thyroid Stim LAB 12/03/16 Complete Hormone 06:47 Lab Results Laboratory Tests Test 12/03/16 04:53 12/03/16 04:58 12/03/16 05:24 White Blood Count 5.8T/MM3 Red Blood Count 4.58M/MM3 Hemoglobin 12.7GM/DL Hematocrit 37.4% Mean Corpuscular Volume 81.7UM3 Mean Corpuscular Hemoglobin 27.7UUG Mean Corpuscular Hemoglobin Concent 34.0GM/DL RDW Standard Deviation 38.2FL Platelet Count 183T/MM3 Mean Platelet Volume 10.5UM3 Immature Granulocyte % (Auto) 0.2% Neutrophils (%) (Auto) 54.7% Lymphocytes (%) (Auto) 32.3% Monocytes (%) (Auto) 9.3% Eosinophils (%) (Auto) 2.1% Basophils (%) (Auto) 1.4% Absolute Immature Granulocyte (auto 0.01T/MM3 Absolute Neutrophils (auto) 3.2T/MM3 Absolute Lymphocytes (auto) 1.9T/MM3 Absolute Monocytes (auto) 0.5T/MM3 Absolute Eosinophils (auto) 0.1T/MM3 Absolute Basophils (auto) 0.1T/MM3 D-Dimer < 150NG/ML Turbidity < 20 Sodium Level 143MEQ/L Potassium Level 3.4MEQ/L Chloride Level 107MEQ/L Carbon Dioxide Level 25MEQ/L Anion Gap 11MEQ/L Blood Urea Nitrogen 29.0MG/DL Creatinine 1.2MG/DL Glomerular Filtration Rate Calc 60 BUN/Creatinine Ratio 24RATIO Glucose Level 93MG/DL Calculated Osmolality 281MOSM/KG Calcium Level 9.6MG/DL Magnesium Level 2.0MG/DL Total Bilirubin 0.60MG/DL Icterus Index < 2 Aspartate Amino Transf (AST/SGOT) 29U/L Alanine Aminotransferase (ALT/SGPT) 33U/L Alkaline Phosphatase 63U/L Troponin I < 0.012ng/ml IA-Ntq-A-Type Natriuretic Peptide 70PG/ML Total Protein 6.2G/DL Albumin 3.6G/DL Globulin 2.6G/DL Albumin/Globulin Ratio 1.4RATIO Chemistry Specimen Hemolysis < 15 Thyroid Stimulating Hormone (TSH) 2.48MIU/L Urine Collection Type Cleancatch-midstream Urine Color Yellow Urine Turbidity Clear Urine pH 5.5 Urine Specific [place] 1.010 Urine Protein Negative Urine Glucose (UA) Negative Urine Ketones Negative Urine Blood Trace-intact Urine Nitrite Negative Urine Bilirubin Negative Urine Urobilinogen 0.2EU/DL Urine Leukocyte Esterase Negative Urinalysis Comment Microscopic not ind. Progress Progress Discussed lack of definitive dx, prognosis, and plan of care with pt; pt voiced understanding. F/u with Dr. Mark in clinic tomorrow. EKG EKG : Rate: <60 Rhythm: sinus Warren: normal QRS: normal Intervals: normal ST/T: normal Interpreted by: signing physician Consult/PCP Consult/PCP : Physician Contacted: Dr. Mark Time Called: 05:55 Time of first response: 05:58 Type of discussion: Phone Consult/PCP Discussion Details Prema: Unsure of dispo: call Dr. Mark directly. 0605: Requested Dr. Mark. 0608: Call went to voicemail. 0621: Repaged Dr. Mark. 0623: Draw TSH; F/u in clinic tomorrow for eval/holter. Xray Xray : Xray: CXR PA/Lat Interpretation: Normal, Interpreted by BOBBY Austin DO Dec 03, 2016 05:02
[2016-12-03 05:06] LABS: BASOPHILS # (AUTO) 0.1 T/MM3 (0-0.2); BASOPHILS % (AUTO) 1.4 % (0-2); EOSINOPHILS # (AUTO) 0.1 T/MM3 (0-0.5); EOSINOPHILS % (AUTO) 2.1 % (0-4); HCT - HEMATOCRIT 37.4 % (41-53); HGB - HEMOGLOBIN 12.7 GM/DL (13.5-17.5); IMMATURE GRANULOCYTE # (AUTO) 0.01 T/MM3 (0.00-0.03); IMMATURE GRANULOCYTE % (AUTO) 0.2 % (0.0-0.5); LYMPHOCYTES # (AUTO) 1.9 T/MM3 (1-4.8); LYMPHOCYTES % (AUTO) 32.3 % (23-45); MEAN CORPUSCULAR HGB 27.7 UUG (26-34); MEAN CORPUSCULAR VOLUME 81.7 UM3 (80-100); MEAN PLATELET VOLUME 10.5 UM3 (9.4-12.4); MONOCYTES # (AUTO) 0.5 T/MM3 (0-0.8); MONOCYTES % (AUTO) 9.3 % (0-9.0); NEUTROPHILS #(AUTO)-ABSOLUTE 3.2 T/MM3 (1.8-7.7); NEUTROPHILS % (AUTO) 54.7 % (33-66); RED BLOOD COUNT 4.58 M/MM3 (4.50-5.90); WBC - WHITE BLOOD COUNT 5.8 T/MM3 (4.5-11.0)
[2016-12-03 05:14] LABS: ALBUMIN 3.6 G/DL (3.5-5.0); ALBUMIN/GLOBULIN RATIO 1.4 RATIO (1.1-2.2); ALKALINE PHOSPHATASE 63 U/L (38-126); ALT (SGPT) 33 U/L (21-72); ANION GAP 11 MEQ/L (5-15); AST (SGOT) 29 U/L (17-59); BUN/CREATININE RATIO 24 RATIO (6-26); CALCIUM 9.6 MG/DL (8.4-10.2); CHLORIDE 107 MEQ/L (98-107); CO2 - CARBON DIOXIDE 25 MEQ/L (22-30); CREATININE 1.2 MG/DL (0.8-1.5); GLOMERULAR FILTRATION RATE 60; GLUCOSE 93 MG/DL (75-110); POTASSIUM 3.4 MEQ/L (3.6-5); SODIUM 143 MEQ/L (134-144); TOTAL PROTEIN 6.2 G/DL (6.3-8.2)
[2016-12-03 05:22] LABS: PROBNP 70 PG/ML (0-175)
[2016-12-03 05:35] LABS: BLOOD, URINE TRACE-INTACT (NEGATIVE); COLOR,URINE YELLOW (YELLOW); LEUKOCYTE ESTERASE ,URINE NEGATIVE (NEGATIVE); NITRITE,URINE NEGATIVE (NEGATIVE); UROBILINOGEN,URINE 0.2 EU/DL (NORMAL)
--- NOTE | 2016-12-03 06:10 | NUR ---
STATUS PT. RESTING COMFORTABLY IN ROOM. MONITOR SINUS BRADYCARDIA.
--- OUTSIDE RECORDS SUMMARY | 2016-12-03 06:18 | XMS REPORT | Continuity of Care Document ---
Author Author Eddie [facility] LIVE Organization [facility] LIVE Address Unknown Phone Unavailable Support Name Relationship Address Phone REBECCA MARK MD Caregiver CARDIOVASCULAR CARE [address] [facility] [address] [place] [address] JEFF AVELAR DO Caregiver [facility] [address] [place] [phone] JIMENEZ BAILEY MD Caregiver [address] [place] [address] [place] [phone] JOSE NGUYỄN Next Of Kin [address] [place], [place] [address] C Insurance Providers Payer Name Policy Number Subscriber Name Relationship [facility] [id number] Santosh Nguyễn Self Medicare Part A Only [id number] Santosh Nguyễn 19 Self Advance Directives Directive [...] of your legs. 3.During office hours, call [phone] 4. After hours, please call [facility] at [phone], and have the barber shop operator page your Surgeon IN THE EVENT [...] F (96.8 - 99.1) Temperature (Calculated Celsius) 36.40492 degrees C (36.0 - 37.3) Pulse Rate [...] 10, 2010 12:35pm LAB TEST FORM REQUEST [id number] - Lipase April 17, 2011 11:20am 123 [...] 0-9.0 COMMENT MAY USE BLOOD IN LAB HJ-Udd-X-Type Natriuretic Peptide April 09, 2014 10:55pm 66 [...] Has specimen been collected/obtained? Y Urine Specific [place] June 07, 2010 6:30pm 1.010 L - Has specimen been collected/obtained? 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
--- OUTSIDE RECORDS SUMMARY | 2016-12-03 06:18 | XMS REPORT | Continuity of Care Document ---
Author Author [facility] LIVE Organization [facility] LIVE Address Unknown Phone Unavailable Support Name Relationship Address Phone REBECCA MARK MD Caregiver CARDIOVASCULAR CARE [address] [facility] [address] [place] [address] ZAHIDA MCKINLEY MD Caregiver [address] [place] [address] [place] [phone] JEFF AVELAR DO Caregiver [facility] [address] [facility] [address] [place], [place] [phone] JOSE NGUYỄN Next Of Kin [address] [place] [address] C Insurance Providers Payer Name Policy Number Subscriber Name Relationship [facility] [id number] Santosh Nguyễn Self Medicare Part A Only [id number] Santosh Nguyễn 19 Self Advance Directives Directive [...] with Dr. Florentino in 2 weeks at [phone] Patient Instructions: see instructions Notify Physician If: see instructions General Information: buamye=2095 g, 8 lbs. 12 oz. Dismissal hwuqzu=6804 g, 8 lbs. 11.5 oz. Plan of [...] F (96.8 - 99.1) Temperature (Calculated Celsius) 35.09981 degrees C (36.0 - 37.3) Temperature Source [...] 10, 2010 12:35pm LAB TEST FORM REQUEST [id number] - Lipase April 17, 2011 11:20am 123 [...] 05, 2014 4:35am 10.9 % H 0-9.0 SR-Cge-R-Type Natriuretic Peptide April 02, 2014 3:45pm 267 [...] Has specimen been collected/obtained? Y Urine Specific [place] June 07, 2010 6:30pm 1.010 L - Has specimen been collected/obtained? 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
--- OUTSIDE RECORDS SUMMARY | 2016-12-03 06:18 | XMS REPORT | Continuity of Care Document ---
Author Author [facility] Organization [facility] Address Unknown Phone Unavailable Support Name Relationship Address Phone REBECCA MARK MD Caregiver [facility] [address] [place] [address] , [address] [place] [address] JEFF AVELAR DO Caregiver [facility] [address] [place] [address] [address] [place] [address] [phone] JOSE NGUYỄN Next Of Kin [address] [place], [place] [id number] C Insurance Providers Payer Name Policy Number Subscriber Name Relationship [facility] [id number] Santosh Nguyễn 19 Self Medicare Part A Only [id number] Santosh Nguyễn 19 Self Advance Directives Directive [...] of your legs. 3.During office hours, call [phone] 4. After hours, please call [facility] at [phone], and have the roller mill operator page your Surgeon IN THE EVENT OF AN EMERGENCY, seek medical care at the nearest Emergency Room Condition at time of discharge: Good Plan of Care Discharge Date 04/10/14 4:12pm Disposition 02 [place] [facility] [place]charge Improved Instructions/Education Provided DI [...] F (96.8 - 99.1) Temperature (Calculated Celsius) 36.78745 degrees C (36.0 - 37.3) Temperature Source [...] 10, 2010 12:35pm LAB TEST FORM REQUEST [id number] - Lipase April 17, 2011 11:20am 123 [...] 12, 2014 12:25pm 8.4 % N 0-9.0 FX-Skr-O-Type Natriuretic Peptide April 09, 2014 10:55pm 66 [...] Has specimen been collected/obtained? Y Urine Specific [place] June 07, 2010 6:30pm 1.010 L - Has specimen been collected/obtained? 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
--- NOTE | 2016-12-03 06:51 | DI ---
LOCATION OF DICTATION: [place] EXAM: CHEST, PA LATERAL HISTORY: ITS.REASON: Dyspnea COMPARISON: Compared to April 10, 2016. FINDINGS: The heart size is normal. The mediastinal configuration is unremarkable. There are no consolidating opacities or pleural effusions. There is no evidence for a pneumothorax. The osseous structures are within normal limits. IMPRESSION: No acute cardiopulmonary abnormality is identified. .
--- NOTE | 2016-12-03 07:48 | NUR ---
DISMISSAL NOTE DISMISSAL INSTRUCTIONS GIVEN TO PT. AND NO FURTHER QUESTIONS.PT. LEFT ED AMBULATORY WITH .
[2016-12-03 13:58] VITALS: BP 137/87; PULSE 60; RESP 20; O2SAT 97
== END 2016-12-03 06:48 | disposition home or self-care (01) ==
LOC: ED 04:24
DX: R06.09 Other forms of dyspnea (principal); R53.83 Other fatigue; R00.1 Bradycardia, unspecified; I25.10 Atherosclerotic heart disease of native coronary artery without angina pectoris; Z95.5 Presence of coronary angioplasty implant and graft
CPT/HCPCS: 80053; 81003; 83735; 83880; 84443; 84484; 85025; 85379; 93005